=== PATIENT | female | born 1995 | race Caucasian/White ===

== ENCOUNTER 2021-06-29 15:06 | Emergency (ER) | payer OTHER ==
--- NOTE | 2021-06-29 16:00 | EDPHYS ---
Physician Documentation [facility] Name: Simi Cruz Age: 25 yrs Sex: Female : 1995 Arrival Date: 06/29/2021 Time: 15:06 Bed Waiting Private MD: IVONNE Physician Kendrick Velez HPI: 06/29 16:53 This 25 yrs old Female presents to ER via Ambulatory with complaints of Toothache. kb 16:53 The patient presents with pain. The problem is located in the gums. Onset: The kb symptoms/episode began/occurred 2 day(s) ago. Duration: The symptoms are continuous. Modifying factors: The symptoms are alleviated by nothing, the symptoms are aggravated by nothing. Associated signs and symptoms: Pertinent positives: pain, Pertinent negatives: anorexia, chills, dysphagia, fever, inability to eat, nausea, redness in area, swelling, vomiting. Severity of symptoms: At their worst the symptoms were moderate, in the emergency department the symptoms are unchanged. The patient has not experienced similar symptoms in the past. The patient has not recently seen a physician. Pt reports pain in gums to upper and lower right side of mouth. States it started 2 days ago. Denies fever, chills, n/v. . 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 - Social history:: Smoking status: Patient reports the use of cigarette tobacco products, smokes one pack cigarettes per day. ROS: 16:53 Constitutional: Negative for fever, chills, and weight loss. kb 16:53 ENT: Positive for dental pain. 16:53 All other systems are negative. Exam: 16:53 Constitutional: This is a well developed, well nourished patient who is awake, alert, kb and in no acute distress. Head/Face: Normocephalic, atraumatic. ENT: Moist Mucous membranes Cardiovascular: Regular rate and rhythm with a normal S1 and S2. No gallops, murmurs, or rubs. No pulse deficits. Respiratory: Respirations even and unlabored. No increased work of breathing. Talking in full sentences Skin: Warm, dry with normal turgor. Normal color. MS/ Extremity: Pulses equal, no cyanosis. Neurovascular intact. Full, normal range of motion. Neuro: Awake and alert, GCS 15, oriented to person, place, time, and situation. Moves all extremities. Normal gait. Psych: Awake, alert, with orientation to person, place and time. Behavior, mood, and affect are within normal limits. 16:53 ENT: Dental exam: normal. Vital Signs: 15:56 BP 103 / 82; Pulse 90; Resp 16; Temp 97.8; Pulse Ox 100% ; Weight 58.97 kg; Height 5 vg1 ft. 2 in. (157.48 cm); Pain 7/10; 15:56 Body Mass Index 23.78 (58.97 kg, 157.48 cm) vg1 MDM: 15:58 Patient medically screened. kb 16:53 Data reviewed: vital signs, nurses notes. Data interpreted: Pulse oximetry: on room air kb is 100 %. Interpretation: normal. Counseling: I had a detailed discussion with the patient and/or guardian regarding: the historical points, exam findings, and any diagnostic results supporting the discharge/admit diagnosis, the need for outpatient follow up, a dentist, to return to the emergency department if symptoms worsen or persist or if there are any questions or concerns that arise at home. Administered Medications: 16:07 Drug: Ketorolac 30 mg Route: IM; Site: right deltoid; vg1 16:07 Follow up: Response: Medication administered at discharge. vg1 Disposition: 06/30 07:46 Co-signature as Attending Physician, Kendrick Velez MD I agree with the assessment and zenaida plan of care. Disposition Summary: 06/29/21 16:00 Discharge Ordered Location: Home kb Condition: Stable kb Diagnosis - Dental Pain kb Followup: kb - With: Emergency Department - When: As needed - Reason: Worsening of condition Followup: kb - With: Private Physician - When: 2 - 3 days - Reason: Recheck today's complaints, Continuance of care, Re-evaluation by your physician Discharge Instructions: - Discharge Summary Sheet kb - Dental Pain, [id number] kb Forms: - Medication Reconciliation Form kb - Thank You Letter kb - Antibiotic Education kb - Prescription Opioid Use kb Prescriptions: - Clindamycin HCl 300 mg Oral Capsule - take 1 capsule by ORAL route every 6 hours for 10 days; 40 capsule; Refills: 0, kb Product Selection Permitted - Diclofenac Sodium 75 mg Oral Tablet Sustained Release - take 1 tablet by ORAL route 2 times per day; 30 tablet; Refills: 0, Product kb Selection Permitted Signatures: Manisha Rae, LINEWORKER-C LINEWORKER-Kendrick Davies MD MD cha Garcia, Victoria, RN RN vg1
--- NOTE | 2021-06-29 16:00 | ER ---
Nurse's Notes [facility] Name: Simi Cruz Age: 25 yrs Sex: Female : 1995 Arrival Date: 06/29/2021 Time: 15:06 Bed Waiting Private MD: Diagnosis: Dental Pain Presentation: 06/29 15:56 Chief complaint: Patient states: Right facial swelling x 2 days; states is unable to vg1 eat and top and lower gums 'hurt'. Coronavirus screen: Vaccine status: Patient reports being unvaccinated. Client denies travel out of the [place] in the last 14 days. Ebola Screen: Patient negative for fever greater than or equal to 101.5 degrees Fahrenheit, and additional compatible Ebola Virus Disease symptoms. Initial Sepsis Screen: Does the patient meet any 2 criteria? No. Patient's initial sepsis screen is negative. Does the patient have a suspected source of infection? No. Patient's initial sepsis screen is negative. Risk Assessment: Do you want to hurt yourself or someone else? Patient reports no desire to harm self or others. Onset of symptoms was June 14, 2021. 15:56 Method Of Arrival: Ambulatory vg1 15:56 Acuity: MELANIE 4 vg1 Triage Assessment: 15:59 General: Appears in no apparent distress. uncomfortable, Behavior is calm, cooperative. vg1 Pain: Complains of pain in right jaw. EENT: Reports pain in right jaw. 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 - Social history:: Smoking status: Patient reports the use of cigarette tobacco products, smokes one pack cigarettes per day. Screenin:08 Abuse screen: Denies threats or abuse. Nutritional screening: No deficits noted. vg1 Tuberculosis screening: No symptoms or risk factors identified. Fall Risk None identified. Vital Signs: 15:56 BP 103 / 82; Pulse 90; Resp 16; Temp 97.8; Pulse Ox 100% ; Weight 58.97 kg; Height 5 vg1 ft. 2 in. (157.48 cm); Pain 7/10; 15:56 Body Mass Index 23.78 (58.97 kg, 157.48 cm) vg1 ED Course: 15:06 Patient arrived in ED. am2 15:55 Manisha Rae FNP-C is [facility]. kb 15:55 Kendrick Velez MD is Attending Physician. kb 15:58 Triage completed. vg1 15:59 Arm band placed on. vg1 16:08 Patient has correct armband on for positive identification. vg1 16:08 No provider procedures requiring assistance completed. Patient did not have IV access vg1 during this emergency room visit. Administered Medications: 16:07 Drug: Ketorolac 30 mg Route: IM; Site: right deltoid; vg1 16:07 Follow up: Response: Medication administered at discharge. vg1 Outcome: 16:00 Discharge ordered by . kb 16:08 Discharged to home ambulatory, with family. vg1 16:08 Condition: good 16:08 Discharge instructions given to patient, Instructed on discharge instructions, follow up and referral plans. medication usage, Demonstrated understanding of instructions, follow-up care, medications, Prescriptions given X 2. 16:08 Patient left the ED. vg1 Signatures: Manisha Rae FNP-C FNP-Ckb Moreno, Amanda am2 Eugenia Martin, RN RN vg1
[2021-06-29] MEDS ORDERED: KETOROLAC 30 MG/ML INJ ONE (16:05)
[2021-06-29 16:17] VITALS: BP 103/82; TEMP 97.8; O2SAT 100
== END 2021-06-29 16:08 | disposition home or self-care (01) ==
LOC: ER 15:06
DX: K08.89 Other specified disorders of teeth and supporting structures (principal); F17.210 Nicotine dependence, cigarettes, uncomplicated; Z88.0 Allergy status to penicillin; Z91.048 Other nonmedicinal substance allergy status
CPT/HCPCS: 96372; 99283

== ENCOUNTER 2021-09-08 08:43 | Emergency (ER) | payer OTHER ==
[2021-09-08 09:19] LABS: Urine Blood 3+ (Negative); Urine Glucose Negative (Negative); Urine Protein 1+ (Negative); Urine Specific Gravity 1.025 (1.005-1.030)
[2021-09-08 09:21] LABS: Absolute Lymphocytes (CBC) 2.8 K/uL (0.7-4.9); Hematocrit 40.9 % (36.0-45.0); Lymphocytes % 36.4 % (15.3-44.8); MPV 7.9 fL (7.6-11.3); RBC Red Blood Cell Count 4.65 M/uL (3.86-4.86)
[2021-09-08 09:31] LABS: Urine Specific Gravity/Preg 1.025 (1.005-1.030)
[2021-09-08] MEDS ORDERED: LORAZEPAM 0.5 MG TABLET ONE (09:33)
[2021-09-08] MEDS ORDERED: NA CHLORIDE 0.9% 0 ML ONE (09:33)
[2021-09-08] MEDS ORDERED: NA CHLORIDE 0.9% 1,000 ML ONE (09:35)
[2021-09-08 09:38] LABS: ALT/SGPT 19 U/L (12-78); AST/SGOT 13 U/L (15-37); Albumin 4.1 g/dL (3.4-5.0); Alkaline Phosphatase 52 U/L (45-117); BUN Blood Urea Nitrogen 10 mg/dL (7-18); Bicarbonate 23 mmol/L (21-32); Bilirubin Total 0.9 mg/dL (0.2-1.0); Glucose Level 104 mg/dL (74-106); Potassium 3.4 mmol/L (3.5-5.1); Sodium Level 139 mmol/L (136-145)
--- NOTE | 2021-09-08 09:38 | RAD REPORT ---
EXAM DESCRIPTION: CT - Head Brain Wo Cont - 09/08/2021 9:30 am CLINICAL HISTORY: Headache;Seizure COMPARISON: No comparisons TECHNIQUE: All CT scans are performed using dose optimization technique as appropriate and may inclu de automated exposure control or mA/KV adjustment according to patient size. FINDINGS: No intracranial hemorrhage, hydrocephalus or extra-axial fluid collection.No areas of brai n edema or evidence of midline shift. The paranasal sinuses and mastoids are clear. The calvarium is intact. IMPRESSION: No acute intracranial abnormality.
[2021-09-08 10:20] LABS: THC Cannibis POSITIVE (NEGATIVE)
[2021-09-08 10:21] LABS: Barbiturates NEGATIVE (NEGATIVE); Benzodiazepines NEGATIVE (NEGATIVE); Cocaine NEGATIVE (NEGATIVE); METHAMPHETAM POSITIVE (NEGATIVE); Methadone NEGATIVE (NEGATIVE); Opiates NEGATIVE (NEGATIVE); Phencyclidine NEGATIVE (NEGATIVE)
[2021-09-08 11:08] LABS: Valproic Acid (Depakene) Level < 3.0 ug/mL (50-100)
[2021-09-08] MEDS ORDERED: KETOROLAC 30 MG/ML INJ ONE (11:22)
--- NOTE | 2021-09-08 11:40 | ER ---
Nurse's Notes [facility] Name: Simi Cruz Age: 26 yrs Sex: Female : 1995 Arrival Date: 09/08/2021 Time: 08:46 Bed 19 Private MD: Diagnosis: Other seizures;Cannabis abuse;Other stimulant abuse-methamphetamine Presentation: 09/08 08:58 Chief complaint: Patient states: "I had a seizure yesterday and my work wanted me to ss get checked out because I'm shaky and my legs feel week." Pt reports she moved here recently and has not been able to fill her Depakote. Coronavirus screen: Client denies travel out of the [place] in the last 14 days. Ebola Screen: Patient denies exposure to infectious person. Patient denies travel to an Ebola-affected area in the 21 days before illness onset. 08:58 Method Of Arrival: Wheelchair ss 09:00 Initial Sepsis Screen: Does the patient meet any 2 criteria? No. Patient's initial ss sepsis screen is negative. Does the patient have a suspected source of infection? No. Patient's initial sepsis screen is negative. Risk Assessment: Do you want to hurt yourself or someone else? Patient reports no desire to harm self or others. Onset of symptoms was September 07, 2021. 09:00 Acuity: MELANIE 3 ss Historical: - Allergies: 09:01 Desitin; ss 09:01 PENICILLINS; ss - Home Meds: 09:01 Depakote (patient states she is out of medication) [Active]; ss - PMHx: 09:01 Biopolar; diabetes mellitus; Seizure; ss - PSHx: 09:01 Adenoid excision; Cholecystectomy; Tonsillectomy; ss - Immunization history:: Client reports having NOT received the Covid vaccine. - Social history:: Smoking status: Patient reports the use of cigarette tobacco products, smokes one pack cigarettes per day. Screenin:20 Abuse screen: Denies threats or abuse. Nutritional screening: No deficits noted. dw3 Tuberculosis screening: No symptoms or risk factors identified. Fall Risk None identified. Assessment: 09:20 General: Appears uncomfortable, Behavior is calm, cooperative. Pain: Complains of pain dw3 in right lower quadrant and left lower quadrant, behind eyes Quality of pain is described as aching, patient states pounding headache. Neuro: Level of Consciousness is awake, alert, obeys commands, Oriented to person, place, time, situation, Appropriate for age Moves all extremities. Gait is steady, Speech is normal, Facial symmetry appears normal, Reports headache behind eyes. Cardiovascular: Heart tones S1 S2 present Rhythm is sinus rhythm. GI: Abdomen is round non-distended, Reports lower abdominal pain, vomiting x1 yesterday. 09:20 Respiratory: Airway is patent Respiratory effort is even, unlabored, Respiratory dw3 pattern is regular, symmetrical. 09:20 : No signs and/or symptoms were reported regarding the genitourinary system. EENT: No dw3 signs and/or symptoms were reported regarding the EENT system. Derm: Skin is pink, warm \\T\\ dry. Musculoskeletal: Range of motion: intact in all extremities. 10:00 Reassessment: Patient is alert, oriented x 3, equal unlabored respirations, skin dw3 warm/dry/pink. patient back from CT Scan, waiting results . 11:14 Reassessment: Patient is alert, oriented x 3, equal unlabored respirations, skin dw3 warm/dry/pink. patient still complaining about headache and is requesting medications. Provider notified. 11:14 General: Appears comfortable, Patient reports shaking has improved . dw3 12:55 Reassessment: Patient is alert, oriented x 3, equal unlabored respirations, skin dw3 warm/dry/pink. Vital Signs: 08:58 BP 121 / 80; Pulse 116; Resp 17; Temp 97.8(TE); Pulse Ox 97% on R/A; Weight 74.84 kg; ss Height 5 ft. 2 in. (157.48 cm); Pain 0/10; 09:20 BP 126 / 63; Pulse 75; Resp 16; Pulse Ox 98% on R/A; kj1 08:58 Body Mass Index 30.18 (74.84 kg, 157.48 cm) [place] Coma Score: 09:01 Eye Response: spontaneous(4). Verbal Response: oriented(5). Motor Response: obeys ss commands(6). Total: 15. ED Course: 08:46 Patient arrived in ED. as 08:47 Abhi Ross NP is PHCP. pm1 08:47 Felix Paula DO is Attending Physician. pm1 09:01 Triage completed. ss 09:01 Arm band placed on right wrist. ss 09:04 Initial lab(s) drawn, by me, sent to lab. Inserted saline lock: 20 gauge in right kj1 antecubital area, using aseptic technique. Blood collected. 09:07 Shereen Jimenez, RN is Primary Nurse. dw3 09:20 Patient has correct armband on for positive identification. Placed in gown. Bed in low dw3 position. Call light in reach. Side rails up X2. 09:31 CT Head Brain wo Cont In Process Unspecified. EDMS 11:39 Cuauhtemoc Burch MD is Referral Physician. pm1 12:55 No provider procedures requiring assistance completed. IV discontinued, intact, dw3 bleeding controlled, No redness/swelling at site. Pressure dressing applied. Administered Medications: 10:00 Drug: Ativan (LORazepam) 0.5 mg Route: PO; dw3 10:00 Drug: NS 0.9% 1000 ml Route: IV; Rate: 1000 ml; Site: right antecubital; dw3 11:02 Follow up: IV Status: Completed infusion; IV Intake: 1000ml jg9 11:24 Drug: TORadol (ketorolac) 30 mg Route: IVP; Site: right antecubital; dw3 Intake: 11:02 IV: 1000ml; Total: 1000ml. jg9 Outcome: 11:39 Discharge ordered by MD. pm1 12:55 Discharged to home ambulatory, with significant other. dw3 12:55 Condition: stable 12:55 Discharge instructions given to patient, Instructed on discharge instructions, follow up and referral plans. medication usage, Demonstrated understanding of instructions, follow-up care, medications, Prescriptions given X 2. 13:01 Patient left the ED. dw3 Signatures: Dispatcher [employer] EDMS Nicole Yen Shelby, AIDA RN Abhi Ross, WALKER PRICING SPECIALIST pm1 Vicky Rae kj1 Lor Zambrano RN RN jg9 Shereen Jimenez, RN RN dw3 Corrections: (The following items were deleted from the chart) 10:40 10:06 General: Appears uncomfortable, Behavior is calm, cooperative, dw3 dw3 10:40 10:06 Pain: Complains of pain in right lower quadrant and left lower quadrant, behind dw3 eyes Quality of pain is described as aching, patient states pounding headache dw3 : 10:06 Neuro: Level of Consciousness is awake, alert, obeys commands, Oriented to dw3 person, place, time, situation, Appropriate for age Moves all extremities. Gait is steady, Speech is normal, Facial symmetry appears normal, Reports headache behind eyes dw3 : 10:06 Cardiovascular: Heart tones S1 S2 present Rhythm is sinus rhythm dw3 dw3 : 10:06 Respiratory: Airway is patent Respiratory effort is even, unlabored, Respiratory dw3 pattern is regular, symmetrical, dw3 : 10:06 GI: Abdomen is round non-distended, Reports lower abdominal pain, vomiting x1 dw3 yesterday dw3
--- NOTE | 2021-09-08 11:40 | EDPHYS ---
Physician Documentation [facility] Name: Simi Cruz Age: 26 yrs Sex: Female : 1995 Arrival Date: 09/08/2021 Time: 08:46 Bed 19 Private MD: ED Physician Felix Paula HPI: 09/08 09:06 This 26 yrs old Female presents to ER via Wheelchair with complaints of Seizure. pm1 09:06 This 26 yrs old Female presents to ER via Wheelchair with complaints of Seizure. pm1 09:06 The patient presents after having a single isolated seizure, that lasted 1 minute(s). pm1 Character of seizure(s): Loss of consciousness: the patient did not lose consciousness, Motor activity: generalized. Seizure onset: Yesterday. Context: the seizure(s) was witnessed, by family, , occurred at home, Contributing factors: Patient ran out of [facility] for her seizures. Seizure Hx: Usual frequency: roughly every 1 month(s), Seizure medications: valproic acid. Associated injury: Head/face: left side of head, pain. Historical: - Allergies: 09:01 Desitin; ss 09:01 PENICILLINS; ss - Home Meds: 09:01 Depakote (patient states she is out of medication) [Active]; ss - PMHx: 09:01 Biopolar; diabetes mellitus; Seizure; ss - PSHx: 09:01 Adenoid excision; Cholecystectomy; Tonsillectomy; ss - Immunization history:: Client reports having NOT received the Covid vaccine. - Social history:: Smoking status: Patient reports the use of cigarette tobacco products, smokes one pack cigarettes per day. ROS: 09:06 Constitutional: Negative for fever, chills, and weight loss, Cardiovascular: Negative pm1 for chest pain, palpitations, and edema, Respiratory: Negative for shortness of breath, cough, wheezing, and pleuritic chest pain, Abdomen/GI: Negative for abdominal pain, nausea, vomiting, diarrhea, and constipation, MS/Extremity: Negative for injury and deformity, Skin: Negative for injury, rash, and discoloration. 09:06 Neuro: Positive for headache, seizure activity, Weakness to bilateral legs. 09:06 All other systems are negative. Exam: 09:06 Constitutional: This is a well developed, well nourished patient who is awake, alert, pm1 and in no acute distress. Head/Face: Normocephalic, atraumatic. 09:06 Back: No spinal tenderness. No costovertebral tenderness. Full range of motion. Skin: Warm, dry with normal turgor. Normal color with no rashes, no lesions, and no evidence of cellulitis. MS/ Extremity: Pulses equal, no cyanosis. Neurovascular intact. Full, normal range of motion. 09:06 Eyes: Exam is negative for acute changes, Periorbital structures: appear normal, Extraocular movements: no acute changes, Conjunctiva: normal, no acute changes. 09:06 ENT: Exam is negative for Mouth: no acute changes, Lips: normal, moist, Oral mucosa: normal, pink and intact, moist. 09:06 Cardiovascular: Exam negative for acute changes, Rate: normal, Rhythm: regular, Pulses: no pulse deficits are appreciated, Heart sounds: normal. 09:06 Respiratory: Exam negative for acute changes, respiratory distress, shortness of breath, Breath sounds: are clear throughout. 09:06 Abdomen/GI: Exam negative for acute changes, Inspection: abdomen appears normal, Palpation: abdomen is soft and non-tender. 09:06 Neuro: Exam negative for acute changes, Orientation: is normal, Mentation: is normal, Motor: is normal, moves all fours. Vital Signs: 08:58 BP 121 / 80; Pulse 116; Resp 17; Temp 97.8(TE); Pulse Ox 97% on R/A; Weight 74.84 kg; Height 5 ft. 2 in. (157.48 cm); Pain 0/10; 09:20 BP 126 / 63; Pulse 75; Resp 16; Pulse Ox 98% on R/A; kj1 08:58 Body Mass Index 30.18 (74.84 kg, 157.48 cm) [place] Coma Score: 09:01 Eye Response: spontaneous(4). Verbal Response: oriented(5). Motor Response: obeys commands(6). Total: 15. MDM: 09:17 Patient medically screened. pm1 11:37 Data reviewed: vital signs. Data interpreted: Pulse oximetry: on room air is 98 %. pm1 Interpretation: normal. Counseling: I had a detailed discussion with the patient and/or guardian regarding: the historical points, exam findings, and any diagnostic results supporting the discharge/admit diagnosis, lab results, radiology results, the need for outpatient follow up, a neurologist, to return to the emergency department if symptoms worsen or persist or if there are any questions or concerns that arise at home. 09/08 09:06 Order name: CBC with Diff; Complete Time: 09:28 pm1 09/08 09:06 Order name: CMP; Complete Time: 11:18 pm1 09/08 09:19 Order name: Urine Dipstick-Ancillary; Complete Time: 09:28 EDMS 09/08 09:21 Order name: Urine --Ancillary (enter results); Complete Time: 09:34 bd 09/08 09:28 Order name: UDS; Complete Time: 10:32 pm1 09/08 09:41 Order name: LAB Add On pm1 09/08 09:06 Order name: IV Saline Lock; Complete Time: 09:08 pm1 09/08 09:06 Order name: EKG; Complete Time: 09:07 pm1 09/08 09:06 Order name: CT Head Brain wo Cont; Complete Time: 09:41 pm1 09/08 09:53 Order name: Valproic Acid (Depakene) Level; Complete Time: 11:18 EDMS 09/08 10:33 Order name: LAB Add On pm1 09/08 09:06 Order name: EKG - Nurse/Tech; Complete Time: 09:53 pm1 09/08 09:06 Order name: Urine Dipstick-Ancillary (obtain specimen); Complete Time: 09:53 pm1 09/08 09:06 Order name: Urine Test (obtain specimen); Complete Time: 09:53 pm1 Administered Medications: 10:00 Drug: Ativan (LORazepam) 0.5 mg Route: PO; dw3 10:00 Drug: NS 0.9% 1000 ml Route: IV; Rate: 1000 ml; Site: right antecubital; dw3 11:02 Follow up: IV Status: Completed infusion; IV Intake: 1000ml jg9 11:24 Drug: TORadol (ketorolac) 30 mg Route: IVP; Site: right antecubital; dw3 Disposition: 22:05 Co-signature as Attending Physician, Felix WILDER was immediately available on-site ms3 in the Emergency Department for consultation in the care of the patient.. Disposition Summary: 09/08/21 11:39 Discharge Ordered Location: Home pm1 Problem: new pm1 Symptoms: have improved pm1 Condition: Stable pm1 Diagnosis - Other seizures pm1 - Cannabis abuse pm1 - Other stimulant abuse - methamphetamine pm1 Followup: pm1 - With: Emergency Department - When: As needed - Reason: Worsening of condition Followup: pm1 - With: Private Physician - When: 2 - 3 days - Reason: Recheck today's complaints, Continuance of care, Re-evaluation by your physician Followup: pm1 - With: Cuauhtemoc Burch MD - When: 2 - 3 days - Reason: Recheck today's complaints, Continuance of care, Re-evaluation by your physician Discharge Instructions: - Discharge Summary Sheet pm1 - Cannabis Use Disorder pm1 - Seizure, Adult pm1 - Methamphetamines Use Disorder pm1 Forms: - Medication Reconciliation Form pm1 - Thank You Letter pm1 - Antibiotic Education pm1 - Prescription Opioid Use pm1 - Work release form pm1 Prescriptions: - ondansetron 4 mg Oral tablet,disintegrating - place 1 tablet by TRANSLINGUAL route every 8 hours As needed; 12 tablet; pm1 Refills: 0, Product Selection Permitted - Hydroxyzine HCl 50 mg Oral Tablet - take 1 tablet by ORAL route every 8 hours As needed; 20 tablet; Refills: 0, pm1 Product Selection Permitted Signatures: Dispatcher [employer] Maria Del Carmen Alonzo RN RN ss Abhi Ross, WALKER WAREHOUSE OPERATIONS ASSOCIATE pm1 Felix Paula DO DO ms3 Shereen Jimenez RN RN dw3 Lor Zambrano RN jg9
[2021-09-08 13:27] VITALS: TEMP 97.8
[2021-09-08 13:28] VITALS: BP 126/63; O2SAT 98
--- NOTE | 2021-09-09 07:55 | EKG ---
Test Date: 2021-09-08 Test Time: 09:17:53 Crystal Report Developer: LISA MEASUREMENT RESULTS: Intervals: Rate: 91 SC: 116 QRSD: 82 QT: 370 QTc: 455 [place]: P: 73 SC: 116 QRS: 90 T: 75 INTERPRETIVE STATEMENTS: Normal sinus rhythm Rightward axis Borderline ECG No previous ECG available for comparison Electronically Signed On 09-09-21 07:52:43 CDT by Troy Reeder
== END 2021-09-08 13:01 | disposition home or self-care (01) ==
LOC: ER 08:43
DX: G40.89 Other seizures (principal); F12.10 Cannabis abuse, uncomplicated; F15.10 Other stimulant abuse, uncomplicated; F31.9 Bipolar disorder, unspecified; F17.210 Nicotine dependence, cigarettes, uncomplicated; Z88.0 Allergy status to penicillin; Z88.8 Allergy status to other drugs, medicaments and biological substances
CPT/HCPCS: 96361; 93005; 85025; 36415; 81025; 80164; 81003; 80053; 80307; 70450; 96374; 99284; J7030

== ENCOUNTER 2022-01-03 15:46 | Emergency (ER) | payer SELFPAY ==
[2022-01-03 17:06] LABS: Urine Blood Negative (Negative); Urine Glucose Negative (Negative); Urine Protein Negative (Negative); Urine Specific Gravity 1.025 (1.005-1.030); Urine pH 5.5 (5.0-7.0)
[2022-01-03 17:16] LABS: Urine Bacteria <20 /HPF (<20); Urine RBC None Seen /HPF (None Seen)
[2022-01-03 17:30] LABS: Urine Specific Gravity/Preg 1.025 (1.005-1.030)
[2022-01-03] MEDS ORDERED: FAMOTIDINE 20 MG/2 ML VIAL IV ONE (17:42)
[2022-01-03] MEDS ORDERED: ONDANSETRON 4 MG/2 ML VIAL ONE ×2 (17:42→19:21)
[2022-01-03] MEDS ORDERED: MORPHINE 2 MG/ML SYR ONE (17:42)
[2022-01-03 17:43] LABS: Absolute Lymphocytes (CBC) 2.6 K/uL (0.7-4.9); Hematocrit 39.5 % (36.0-45.0); Lymphocytes % 33.7 % (15.3-44.8); MCV 89.3 fL (80-100); MPV 8.2 fL (7.6-11.3); RBC Red Blood Cell Count 4.42 M/uL (3.86-4.86)
[2022-01-03 17:58] LABS: ALT/SGPT 14 U/L (12-78); AST/SGOT 10 U/L (15-37); Albumin 3.8 g/dL (3.4-5.0); Alkaline Phosphatase 45 U/L (45-117); BUN Blood Urea Nitrogen 9 mg/dL (7-18); Bicarbonate 29 mmol/L (21-32); Bilirubin Total 0.3 mg/dL (0.2-1.0); Glomerular Filtration Rate 124 ml/min (=/>90); Glucose Level 84 mg/dL (74-106); Lipase 56 U/L (73-393); Potassium 3.6 mmol/L (3.5-5.1); Protein, Total 6.8 g/dL (6.4-8.2); Sodium Level 143 mmol/L (136-145)
[2022-01-03 17:59] LABS: Valproic Acid (Depakene) Level < 3.0 ug/mL (50-100)
--- NOTE | 2022-01-03 18:25 | RAD REPORT ---
EXAM DESCRIPTION: CTAbdomen Pelvis W Contrast - 01/03/2022 6:11 pm CLINICAL HISTORY: abdominal pain COMPARISON: None TECHNIQUE: CT of the abdomen and pelvis was performed. All CT scans are performed using dose optimization technique as appropriate and may include automated exposure control or mA/KV adjustment according to patient size. FINDINGS: Lower chest: No acute abnormality. Liver: No acute abnormality or suspicious lesions. Biliary: No biliary ductal dilatation. Cholecystectomy Stomach: No significant focal abnormality. Duodenum: No significant focal abnormality. Pancreas: No significant abnormality. Spleen: No significant abnormality. Adrenal: No suspicious lesions. Kidney/ureter: No hydronephrosis. No renal calculi. Retroperitoneum: No retroperitoneal adenopathy. Vascular: No aneurysm. Bowel: No significant focal abnormality. Normal appendix. Peritoneum: No ascites or free air. Bladder: Grossly unremarkable. Reproductive: No adnexal masses. Bones: No acute fracture. Other: n/a IMPRESSION: No acute intra-abdominal or pelvic finding. Normal appendix.
[2022-01-03] MEDS ORDERED: NA CHLORIDE 0.9% 1,000 ML ONE (19:21)
[2022-01-03] MEDS ORDERED: DIVALPROEX DR 250 MG TAB PO ONE (19:21)
--- NOTE | 2022-01-03 19:55 | EDPHYS ---
Physician Documentation [facility] Name: Simi Hinkle Age: 26 yrs Sex: Female : 1995 Arrival Date: 01/03/2022 Time: 15:48 Bed 14 Private MD: ED Physician Mary Kate Silva HPI: 01/03 17:05 This 26 yrs old Female presents to ER via Ambulatory with complaints of Vomiting. cp 17:05 The patient presents to the emergency department with nausea, with "dry heaves", cp vomiting, that is intermittent, abdominal pain, of the epigastric area. Onset: The symptoms/episode began/occurred 2 day(s) ago. 17:05 Possible causes: ran out of prescribed Depakote 2 days ago. Associated signs and cp symptoms: Pertinent positives: abdominal pain, anorexia, Pertinent negatives: constipation, diarrhea, fever, GI bleeding. Severity of symptoms: in the emergency department the symptoms are unchanged despite home interventions. 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 - Social history:: Smoking status: Patient reports the use of cigarette tobacco products, smokes one-half pack cigarettes per day. ROS: 17:10 Constitutional: Positive for poor PO intake, Negative for body aches, chills, fever. cp 17:10 Eyes: Negative for injury, pain, redness, and discharge. cp 17:10 ENT: Negative for drainage from ear(s), ear pain, sore throat, difficulty swallowing, difficulty handling secretions. 17:10 Cardiovascular: Negative for chest pain, palpitations. 17:10 Respiratory: Negative for cough, shortness of breath, wheezing. 17:10 Abdomen/GI: Positive for abdominal pain, nausea and vomiting, Negative for diarrhea, constipation, hematemesis, black/tarry stool, rectal bleeding. 17:10 Back: Negative for pain at rest, pain with movement. 17:10 : Positive for urinary frequency. 17:10 Neuro: Negative for altered mental status, headache, weakness. 17:10 All other systems are negative. Exam: 17:10 Constitutional: The patient appears in no acute distress, alert, awake, cp non-diaphoretic, non-toxic, well developed, well nourished. 17:10 Head/Face: Normocephalic, atraumatic. cp 17:10 Eyes: Periorbital structures: appear normal, Conjunctiva: normal, no exudate, no injection, Sclera: no appreciated abnormality, Lids and lashes: appear normal, bilaterally. 17:10 ENT: External ear(s): are unremarkable, Nose: is normal, Mouth: Lips: moist, Oral mucosa: moist, Posterior pharynx: Airway: no evidence of obstruction, patent, Tonsils: are normal in appearance, swelling, is not appreciated, erythema, is not appreciated, exudate, is not appreciated. 17:10 Chest/axilla: Inspection: normal. 17:10 Cardiovascular: Rate: normal, Rhythm: regular. 17:10 Respiratory: the patient does not display signs of respiratory distress, Respirations: normal, no use of accessory muscles, no retractions, labored breathing, is not present, Breath sounds: are clear throughout, no decreased breath sounds, no stridor, no wheezing. 17:10 Abdomen/GI: Inspection: abdomen appears normal, Bowel sounds: active, all quadrants, Palpation: soft, in all quadrants, moderate abdominal tenderness, in the epigastric area, rebound tenderness, is not appreciated, involuntary guarding, is not appreciated. 17:10 Back: CVA tenderness, is absent. 17:10 Skin: cellulitis, is not appreciated, no rash present. 17:10 Neuro: Orientation: to person, place \\T\\ time. Mentation: is normal, Motor: moves all fours, strength is normal, Sensation: is normal. Vital Signs: 16:15 BP 109 / 67; Pulse 83; Resp 17; Temp 98.8; Pulse Ox 99% ; Weight 64.41 kg; Height 5 ft. ap3 2 in. (157.48 cm); Pain 8/10; 17:09 BP 109 / 79; Pulse 82; Resp 18; Pulse Ox 100% on R/A; Pain 8/10; eh3 17:49 BP 104 / 74; Pulse 67; Resp 18; Pulse Ox 100% on R/A; eh3 18:34 BP 125 / 78; Pulse 61; Resp 18; Pulse Ox 100% on R/A; eh3 19:31 BP 109 / 72; Pulse 63; Resp 18; Pulse Ox 100% on R/A; eh3 16:15 Body Mass Index 25.97 (64.41 kg, 157.48 cm) ap3 MDM: 16:55 Patient medically screened. cp 19:54 Data reviewed: vital signs, nurses notes, lab test result(s), radiologic studies, CT cp scan. 19:54 Differential diagnosis: Nonspecific abd pain, gastritis, appendicitis, diverticulitis, cp viral gastroenteritis, gastroenteritis. Counseling: I had a detailed discussion with the patient and/or guardian regarding: the historical points, exam findings, and any diagnostic results supporting the discharge/admit diagnosis, lab results, radiology results, the need for outpatient follow up, a family practitioner, to return to the emergency department if symptoms worsen or persist or if there are any questions or concerns that arise at home. Response to treatment: the patient's symptoms have markedly improved after treatment, and as a result, I will discharge patient. 01/03 16:58 Order name: Depakote; Complete Time: 18:01 01/03 18:34 Interpretation: Reviewed. 01/03 16:58 Order name: CBC with Diff; Complete Time: 18:01 01/03 16:58 Order name: CMP; Complete Time: 18:01 01/03 18:34 Interpretation: Normal except: CL 110; AST 10. 01/03 16:58 Order name: Lipase; Complete Time: 18:01 cp 01/03 16:58 Order name: Urine Microscopic Only; Complete Time: 18:01 cp 01/03 17:06 Order name: Urine Dipstick-Ancillary; Complete Time: 18:01 EDMS 01/03 17:13 Order name: Urine --Ancillary (enter results); Complete Time: 18:01 eb 01/03 17:45 Order name: CT Abd/Pelvis - IV Contrast Only; Complete Time: 18:33 cp 01/03 18:33 Interpretation: Report reviewed. 01/03 16:57 Order name: Urine Dipstick-Ancillary (obtain specimen); Complete Time: 17:08 cp 01/03 16:57 Order name: Urine Test (obtain specimen); Complete Time: 17:08 cp 01/03 16:58 Order name: IV Saline Lock; Complete Time: 17:39 cp 01/03 16:58 Order name: Labs collected and sent; Complete Time: 17:39 cp 01/03 18:34 Order name: PO challenge; Complete Time: 18:38 cp Administered Medications: 17:48 Drug: Zofran (Ondansetron) 4 mg Route: IVP; Site: right antecubital; eh3 19:34 Follow up: Response: No adverse reaction eh3 17:48 Drug: Pepcid (famotidine) 20 mg Route: IVP; Site: right antecubital; eh3 19:34 Follow up: Response: No adverse reaction eh3 17:48 Drug: morphine 2 mg Route: IVP; Infused Over: 4 mins; Site: right antecubital; eh3 19:34 Follow up: Response: No adverse reaction; Marked relief of symptoms eh3 19:17 Drug: NS 0.9% 1000 ml Route: IV; Rate: 1 bolus; Site: left antecubital; ld1 19:17 Drug: Zofran (Ondansetron) 4 mg Route: IVP; Site: left antecubital; ld1 19:34 Follow up: Response: No adverse reaction eh3 19:17 Drug: Depakene (valproic acid) 250 mg Route: PO; ld1 19:35 Follow up: Response: No adverse reaction eh3 Disposition Summary: 01/03/22 19:54 Discharge Ordered Location: Home cp Problem: new cp Symptoms: have improved cp Condition: Stable cp Diagnosis - Nausea with vomiting, unspecified cp - Encounter for issue of repeat prescription cp - Abdominal pain, unspecified cp Followup: cp - With: Private Physician - When: 2 - 3 days - Reason: Recheck today's complaints Discharge Instructions: - Discharge Summary Sheet cp - Abdominal Pain, Adult cp - Nausea and Vomiting, Adult cp - Medicine Refill at the Emergency Department cp Forms: - Medication Reconciliation Form cp - Thank You Letter cp - Antibiotic Education cp - Prescription Opioid Use cp - Work release form ds4 Prescriptions: - divalproex 250 mg Oral tablet,delayed release (DR/EC) - take 1 tablet by ORAL route 2 times per day; 60 tablet; Refills: 0, Product cp Selection Permitted - ondansetron 4 mg Oral tablet,disintegrating - place 1 tablet by TRANSLINGUAL route 4 times per day; 20 tablet; Refills: 0, cp Product Selection Permitted - Protonix 40 mg Oral Tablet - take 1 tablet by ORAL route once daily; 30 tablet; Refills: 0, Product cp Selection Permitted Signatures: Dispatcher [employer] EDSD Kendrick Kan PA PA cp Prokisch, Amanda, RN RN ap3 Carola Alfaro RN RN ld1 Beatrice Pappas 3 Corrections: (The following items were deleted from the chart) 16:24 16:18 PMHx: diabetes mellitus; ap3 ap3
--- NOTE | 2022-01-03 19:55 | ER ---
Nurse's Notes [facility] Name: Simi Hinkle Age: 26 yrs Sex: Female : 1995 Arrival Date: 01/03/2022 Time: 15:48 Bed 14 Private MD: Diagnosis: Nausea with vomiting, unspecified;Encounter for issue of repeat prescription;Abdominal pain, unspecified Presentation: 01/03 16:15 Chief complaint: Patient states: Diffuse abdominal pain, N/V, urinary frequency x 2 ap3 days, reports ran out of Depakote 150 mg 3 days ago. Coronavirus screen: At this time, the client does not indicate any symptoms associated with coronavirus-19. Ebola Screen: No symptoms or risks identified at this time. Initial Sepsis Screen: Does the patient meet any 2 criteria? No. Patient's initial sepsis screen is negative. Does the patient have a suspected source of infection? No. Patient's initial sepsis screen is negative. Risk Assessment: Do you want to hurt yourself or someone else? Patient reports no desire to harm self or others. Onset of symptoms was January 01, 2022. Care prior to arrival: None. 16:15 Method Of Arrival: Ambulatory ap3 16:15 Acuity: MELANIE 3 ap3 Triage Assessment: 16:18 General: Appears in no apparent distress. uncomfortable, Behavior is calm, cooperative, ap3 appropriate for age. Pain: Complains of pain in abdomen diffusely Pain currently is 8 out of 10 on a pain scale. Neuro: Level of Consciousness is awake, alert, obeys commands, Oriented to person, place, time, situation. Cardiovascular: Patient's skin is warm and dry. Respiratory: Airway is patent Respiratory effort is even, unlabored, Respiratory pattern is regular. GI: Reports nausea, vomiting. : Reports urinary frequency. Derm: Skin is pink, warm \T\ dry. 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 - Social history:: Smoking status: Patient reports the use of cigarette tobacco products, smokes one-half pack cigarettes per day. Screenin:09 Abuse screen: Denies threats or abuse. Denies injuries from another. Nutritional eh3 screening: No deficits noted. Tuberculosis screening: No symptoms or risk factors identified. Fall Risk None identified. Assessment: 17:09 Reassessment: No changes from previously documented assessment. See triage assessment.. eh3 General: Appears in no apparent distress. uncomfortable, Behavior is cooperative, appropriate for age, anxious. Pain: Complains of pain in forehead, epigastric area and suprapubic area Pain does not radiate. Pain currently is 8 out of 10 on a pain scale. Quality of pain is described as stabbing, Pain began 2-3 days ago. Is continuous, Noted to be guarding. Neuro: Level of Consciousness is awake, alert, obeys commands, Oriented to person, place, time, situation. Cardiovascular: Capillary refill < 3 seconds Patient's skin is warm and dry. Respiratory: Airway is patent Respiratory effort is even, unlabored. GI: Abdomen is flat, non-distended, Bowel sounds present X 4 quads. Abd is soft X 4 quads Abdomen is tender to palpation in epigastric area and suprapubic area Reports lower abdominal pain, upper abdominal pain, epigastric pain, intolerance of fluids, intolerance of food, nausea, vomiting, since 2 days ago. : No signs and/or symptoms were reported regarding the genitourinary system. : Reports urinary frequency, since 2 days ago. EENT: No signs and/or symptoms were reported regarding the EENT system. Derm: No signs and/or symptoms reported regarding the dermatologic system. Musculoskeletal: No signs and/or symptoms reported regarding the musculoskeletal system. Vital Signs: 16:15 BP 109 / 67; Pulse 83; Resp 17; Temp 98.8; Pulse Ox 99% ; Weight 64.41 kg; Height 5 ft. ap3 2 in. (157.48 cm); Pain 8/10; 17:09 BP 109 / 79; Pulse 82; Resp 18; Pulse Ox 100% on R/A; Pain 8/10; eh3 17:49 BP 104 / 74; Pulse 67; Resp 18; Pulse Ox 100% on R/A; eh3 18:34 BP 125 / 78; Pulse 61; Resp 18; Pulse Ox 100% on R/A; eh3 19:31 BP 109 / 72; Pulse 63; Resp 18; Pulse Ox 100% on R/A; eh3 16:15 Body Mass Index 25.97 (64.41 kg, 157.48 cm) ap3 ED Course: 15:48 Patient arrived in ED. as 15:53 Kendrick Kan PA is PHCP. cp 15:53 Mary Kate Silva is Attending Physician. cp 16:18 Triage completed. ap3 16:18 Arm band placed on right wrist. ap3 16:53 Beatrice Pappas is Primary Nurse. eh3 17:09 Patient has correct armband on for positive identification. Bed in low position. Call eh3 light in reach. Side rails up X2. 17:49 CMP Sent. eh3 17:49 Lipase Sent. eh3 17:49 Depakote Sent. eh3 18:13 CT Abd/Pelvis - IV Contrast Only In Process Unspecified. EDMS 19:35 No provider procedures requiring assistance completed. eh3 20:21 IV discontinued, intact, bleeding controlled, No redness/swelling at site. ld1 Administered Medications: 17:48 Drug: Zofran (Ondansetron) 4 mg Route: IVP; Site: right antecubital; eh3 19:34 Follow up: Response: No adverse reaction eh3 17:48 Drug: Pepcid (famotidine) 20 mg Route: IVP; Site: right antecubital; eh3 19:34 Follow up: Response: No adverse reaction eh3 17:48 Drug: morphine 2 mg Route: IVP; Infused Over: 4 mins; Site: right antecubital; eh3 19:34 Follow up: Response: No adverse reaction; Marked relief of symptoms eh3 19:17 Drug: NS 0.9% 1000 ml Route: IV; Rate: 1 bolus; Site: left antecubital; ld1 19:17 Drug: Zofran (Ondansetron) 4 mg Route: IVP; Site: left antecubital; ld1 19:34 Follow up: Response: No adverse reaction eh3 19:17 Drug: Depakene (valproic acid) 250 mg Route: PO; ld1 19:35 Follow up: Response: No adverse reaction eh3 Medication: 19:35 VIS not applicable for this client. eh3 Outcome: 19:54 Discharge ordered by . cp 20:21 Discharged to home ambulatory. ld1 20:21 Condition: stable 20:21 Discharge instructions given to patient, Instructed on discharge instructions, follow up and referral plans. Demonstrated understanding of instructions, follow-up care. 20:21 Patient left the ED. ld1 Signatures: Dispatcher [employer] EDNicole Marrero Corey, PA PA cp Prokisch, Amanda, RN RN ap3 Carola Alfaro RN RN ld1 Beatrice Pappas eh3 Corrections: (The following items were deleted from the chart) 16:24 16:18 PMHx: diabetes mellitus; ap3 ap3
[2022-01-03 21:08] VITALS: TEMP 98.8
[2022-01-03 21:10] VITALS: O2SAT 100
[2022-01-03 21:15] VITALS: BP 109/72
== END 2022-01-03 20:21 | disposition home or self-care (01) ==
LOC: ER 15:46
DX: R11.2 Nausea with vomiting, unspecified (principal); Z76.0 Encounter for issue of repeat prescription; R10.9 Unspecified abdominal pain; F31.9 Bipolar disorder, unspecified; Z88.0 Allergy status to penicillin; Z88.8 Allergy status to other drugs, medicaments and biological substances
CPT/HCPCS: 36415; 74177; 80053; 80164; 81003; 81015; 81025; 83690; 85025; 99284; J2270; J2405; J3490; J7030; Q9967

== ENCOUNTER 2022-01-09 11:52 | Emergency (ER) | payer SELFPAY ==
[2022-01-09 12:28] LABS: Urine Blood Negative (Negative); Urine Glucose Negative (Negative); Urine Protein Trace (Negative); Urine Specific Gravity 1.025 (1.005-1.030)
[2022-01-09 13:20] LABS: Urine Specific Gravity/Preg 1.025 (1.005-1.030)
[2022-01-09] MEDS ORDERED: NA CHLORIDE 0.9% 1,000 ML ONE (14:08)
[2022-01-09] MEDS ORDERED: ONDANSETRON 4 MG/2 ML VIAL ONE (14:08)
[2022-01-09] MEDS ORDERED: FAMOTIDINE 20 MG/2 ML VIAL IV ONE (14:08)
[2022-01-09 14:17] LABS: Absolute Lymphocytes (CBC) 2.4 K/uL (0.7-4.9); Hematocrit 43.1 % (36.0-45.0); Lymphocytes % 29.7 % (15.3-44.8); MCV 89.8 fL (80-100); MPV 8.3 fL (7.6-11.3)
[2022-01-09 14:28] LABS: Urine Bacteria >50 /HPF (<20); Urine RBC <5 /HPF (None Seen)
[2022-01-09 14:34] LABS: Albumin 4.1 g/dL (3.4-5.0); Bilirubin Total 0.3 mg/dL (0.2-1.0); Potassium 3.8 mmol/L (3.5-5.1); Protein, Total 7.7 g/dL (6.4-8.2)
--- NOTE | 2022-01-09 15:24 | RAD REPORT ---
EXAM DESCRIPTION: CT - Abdomen Pelvis W Contrast - 01/09/2022 3:04 pm CLINICAL HISTORY: Abdominal pain COMPARISON: January 03, 2022 TECHNIQUE: Computed axial tomography of the abdomen pelvis was obtained. 100 cc Isovue-300 was admin istered intravenously. Oral contrast was not requested which limits evaluation of bowel and appendix All CT scans are performed using dose optimization technique as appropriate and may include automated exposure control or mA/KV adjustment according to patient size. FINDINGS: The liver, spleen, pancreas, adrenal and kidneys appear unremarkable. There is no evidence of diverticulitis. Normal appendix. Bilateral 2 centimeter ovarian cysts without significant free fluid Cholecystectomy IMPRESSION: Bilateral 2 centimeter ovarian cysts without significant free fluid
--- NOTE | 2022-01-09 15:53 | EDPHYS ---
Physician Documentation [facility] Name: Simi Hinkle Age: 26 yrs Sex: Female : 1995 Arrival Date: 01/09/2022 Time: 11:53 Bed 12 Private MD: ED Physician Mary Kate Silva HPI: 01/09 12:15 This 26 yrs old Female presents to ER via Ambulatory with complaints of Abdominal Pain, jh7 Vomiting/Diarrhea. 12:15 Onset: The symptoms/episode began/occurred 1 week(s) ago. Patient complains of lower jh7 abdominal pain, nausea, vomiting, and diarrhea for the past week. Reports that she was seen recently for the same issues, but now the pain is on her lower abdomen. Denies fever.. Historical: - Allergies: 12:08 Desitin; hb 12:08 PENICILLINS; hb - Home Meds: 12:08 Depakote (patient states she is out of medication) [Active]; hb - PMHx: 12:08 Biopolar; HYPOGLYCEMIA; Seizure; hb - PSHx: 12:08 Adenoid excision; Cholecystectomy; Tonsillectomy; hb - Immunization history:: Adult Immunizations up to date. - Social history:: Smoking status: Patient reports the use of cigarette tobacco products, smokes one-half pack cigarettes per day. ROS: 12:15 Constitutional: Negative for fever, chills, and weight loss, ENT: Negative for injury, jh7 pain, and discharge, Neck: Negative for injury, pain, and swelling, Cardiovascular: Negative for chest pain, palpitations, and edema, Respiratory: Negative for shortness of breath, cough, wheezing, and pleuritic chest pain, Back: Negative for injury and pain, MS/Extremity: Negative for injury and deformity, Skin: Negative for injury, rash, and discoloration, Neuro: Negative for headache, weakness, numbness, tingling, and seizure. 12:15 Abdomen/GI: Positive for abdominal pain, nausea, vomiting, and diarrhea, Negative for black/tarry stool. 12:15 All other systems are negative. Exam: 12:15 Constitutional: This is a well developed, well nourished patient who is awake, alert, jh7 and in no acute distress. Neck: Trachea midline, no thyromegaly or masses palpated, and no cervical lymphadenopathy. Supple, full range of motion without nuchal rigidity, or vertebral point tenderness. No Meningismus. Cardiovascular: Regular rate and rhythm with a normal S1 and S2. No gallops, murmurs, or rubs. Normal PMI, no JVD. No pulse deficits. Respiratory: Lungs have equal breath sounds bilaterally, clear to auscultation and percussion. No rales, rhonchi or wheezes noted. No increased work of breathing, no retractions or nasal flaring. Back: No spinal tenderness. No costovertebral tenderness. Full range of motion. Skin: Warm, dry with normal turgor. Normal color with no rashes, no lesions, and no evidence of cellulitis. MS/ Extremity: Pulses equal, no cyanosis. Neurovascular intact. Full, normal range of motion. Neuro: Awake and alert, GCS 15, oriented to person, place, time, and situation. Normal gait. 12:15 Abdomen/GI: Inspection: abdomen appears normal, Bowel sounds: normal, Palpation: soft, mild abdominal tenderness, in the suprapubic area, right lower quadrant and left lower quadrant. Vital Signs: 12:06 BP 116 / 80; Pulse 108; Resp 16; Temp 98.1(TE); Pulse Ox 97% on R/A; Weight 64.41 kg; hb Height 5 ft. 2 in. (157.48 cm); Pain 9/10; 12:06 Body Mass Index 25.97 (64.41 kg, 157.48 cm) hb MDM: 12:51 Patient medically screened. [facility] 16:50 Differential diagnosis: appendicitis, Ovarian cyst, pyelonephritis, UTI. Data reviewed: [facility] vital signs, nurses notes, lab test result(s), radiologic studies, CT scan. Data interpreted: Pulse oximetry: is 97 %. Interpretation: normal. Counseling: I had a detailed discussion with the patient and/or guardian regarding: the historical points, exam findings, and any diagnostic results supporting the discharge/admit diagnosis, to return to the emergency department if symptoms worsen or persist or if there are any questions or concerns that arise at home. ED course: Patient remained stable throughout the ER visit. She felt much better after pain medication administration.. 01/09 12:25 Order name: CBC with Diff; Complete Time: 14:[address] [facility] 01/09 12:25 Order name: CMP; Complete Time: 14:[address] [facility] 01/09 12:25 Order name: Lipase; Complete Time: 14:[address] [facility] 01/09 12:25 Order name: Urine Microscopic Only; Complete Time: 14:[address] [facility] 01/09 12:25 Order name: Flu; Complete Time: 14:[address] [facility] 01/09 12:25 Order name: SARS-COV-2 RT PCR (Document "Date of Onset" if Symptomatic); Complete Time: [facility] 15:24 01/09 12:29 Order name: Urine Dipstick-Ancillary; Complete Time: 13:48 [facility] 01/09 12:31 Order name: Urine --Ancillary (enter results); Complete Time: 13:48 01/09 14:30 Order name: Urine Culture [facility] 01/09 14:42 Order name: CT Abd/Pelvis - IV Contrast Only; Complete Time: 15:[address] [facility] 01/09 12:25 Order name: IV Saline Lock; Complete Time: 14:[address] [facility] 01/09 12:25 Order name: Labs collected and sent; Complete Time: 14:[address] [facility] 01/09 12:25 Order name: Urine Dipstick-Ancillary (obtain specimen); Complete Time: 14:[address] [facility] 01/09 12:25 Order name: Urine Test (obtain specimen); Complete Time: 14:[address] [facility] Administered Medications: 14:05 Drug: NS 0.9% 1000 ml Route: IV; Rate: 1 bolus; Site: right antecubital; hb 14:05 Drug: Pepcid (famotidine) 20 mg Route: IVP; Site: right antecubital; hb 14:06 Drug: Zofran (Ondansetron) 4 mg Route: IVP; Site: right antecubital; hb 16:40 Drug: Ketorolac 30 mg Route: IVP; Site: right antecubital; ss 17:40 Follow up: Response: No adverse reaction ss 16:46 Drug: Rocephin (cefTRIAXone) 1 grams Route: IV; Rate: 1 calculated rate; Site: right ss antecubital; 17:40 Follow up: IV Status: Completed infusion ss Disposition: 18:49 Co-signature as Attending Physician, Mary Kate Silva MD STAFF ATTESTATION STATEMENT I sd2 was immediately available on-site in the Emergency Department for consultation in the care of the patient. Mary Kate Silva MD. Disposition Summary: 01/09/22 15:53 Discharge Ordered Location: Home [facility] Problem: new [facility] Symptoms: have improved [facility] Condition: Stable [facility] Diagnosis - UTI/ Urinary tract infection, site not specified [facility] - Other ovarian cysts [facility] Followup: [facility] - With: Private Physician - When: 2 - 3 days - Reason: Recheck today's complaints Discharge Instructions: - Form - Return To Work hb - and Returning to Work hb - Discharge Summary Sheet [facility] - Ovarian Cyst [facility] - Urinary Tract Infection, Adult [facility] Forms: - Medication Reconciliation Form [facility] - Thank You Letter [facility] - Antibiotic Education [facility] - Work release form Prescriptions: - Pyridium 200 mg Oral Tablet - take 1 tablet by ORAL route every 8 hours for 3 days; 9 tablet; Refills: 0, jh7 Product Selection Permitted - Macrobid 100 mg Oral Capsule - take 1 capsule by ORAL route every 12 hours for 7 days; 14 capsule; Refills: 0, jh7 Product Selection Permitted Signatures: Dispatcher [employer] Maria Del Carmen Alonzo, AIDA RN Willow Hameed RN RN Lor Monroy, LEASING CONSULTANT LEASING CONSULTANT [facility] Mary Kate Silva MD MD sd2
--- NOTE | 2022-01-09 15:53 | ER ---
Nurse's Notes [facility] Name: Simi Hinkle Age: 26 yrs Sex: Female : 1995 Arrival Date: 01/09/2022 Time: 11:53 Bed 12 Private MD: Diagnosis: UTI/ Urinary tract infection, site not specified;Other ovarian cysts Presentation: 01/09 12:06 Chief complaint: Diffuse abdominal pain and N/V x 1 week, diarrhea x 3 days. Tolerating hb fluids but not food. Coronavirus screen: Client presents with at least one sign or symptom that may indicate coronavirus-19. Standard/surgical mask placed on the client. Provider contacted for isolation considerations. Ebola Screen: No symptoms or risks identified at this time. Initial Sepsis Screen: Does the patient meet any 2 criteria? No. Patient's initial sepsis screen is negative. Does the patient have a suspected source of infection? No. Patient's initial sepsis screen is negative. Risk Assessment: Do you want to hurt yourself or someone else? Patient reports no desire to harm self or others. Onset of symptoms was December 23, 2021. 12:06 Method Of Arrival: Ambulatory hb 12:06 Acuity: MELANIE 3 hb Historical: - Allergies: 12:08 Desitin; hb 12:08 PENICILLINS; hb - Home Meds: 12:08 Depakote (patient states she is out of medication) [Active]; hb - PMHx: 12:08 Biopolar; HYPOGLYCEMIA; Seizure; hb - PSHx: 12:08 Adenoid excision; Cholecystectomy; Tonsillectomy; hb - Immunization history:: Adult Immunizations up to date. - Social history:: Smoking status: Patient reports the use of cigarette tobacco products, smokes one-half pack cigarettes per day. Assessment: 17:41 Reassessment: Patient appears in no apparent distress at this time. Patient and/or ss family updated on plan of care and expected duration. Pain level reassessed. Patient is alert, oriented x 3, equal unlabored respirations, skin warm/dry/pink. Vital Signs: 12:06 BP 116 / 80; Pulse 108; Resp 16; Temp 98.1(TE); Pulse Ox 97% on R/A; Weight 64.41 kg; hb Height 5 ft. 2 in. (157.48 cm); Pain 9/10; 12:06 Body Mass Index 25.97 (64.41 kg, 157.48 cm) ED Course: 11:53 Patient arrived in ED. mr 11:55 [facility] 11:55 Mary Kate Silva MD is Attending Physician. [facility] 12:08 Triage completed. hb 12:08 Arm band placed on right wrist. hb 14:10 Inserted saline lock: 20 gauge in right antecubital area, using aseptic technique. Blood collected. 14:10 SARS-COV-2 RT PCR (Document "Date of Onset" if Symptomatic) Sent. zm 14:10 Flu Sent. zm 14:10 CBC with Diff Sent. zm 14:10 CMP Sent. zm 14:10 Lipase Sent. 15:06 CT Abd/Pelvis - IV Contrast Only In Process Unspecified. [facility] 16:35 Maria Del Carmen Mccormick, RN is Primary Nurse. ss 17:41 No provider procedures requiring assistance completed. Patient did not have IV access ss during this emergency room visit. Administered Medications: 14:05 Drug: NS 0.9% 1000 ml Route: IV; Rate: 1 bolus; Site: right antecubital; hb 14:05 Drug: Pepcid (famotidine) 20 mg Route: IVP; Site: right antecubital; hb 14:06 Drug: Zofran (Ondansetron) 4 mg Route: IVP; Site: right antecubital; hb 16:40 Drug: Ketorolac 30 mg Route: IVP; Site: right antecubital; ss 17:40 Follow up: Response: No adverse reaction 16:46 Drug: Rocephin (cefTRIAXone) 1 grams Route: IV; Rate: 1 calculated rate; Site: right ss antecubital; 17:40 Follow up: IV Status: Completed infusion Outcome: 15:53 Discharge ordered by . [facility] 17:41 Discharged to home ambulatory. ss 17:41 Condition: good 17:41 Discharge instructions given to patient, Instructed on discharge instructions, follow up and referral plans. medication usage, Demonstrated understanding of instructions, follow-up care, medications. 17:42 Patient left the ED. ss Signatures: Dispatcher [facility] BaljinderStephanie mr Maria Del Carmen Mccormick, AIDA RN Willow Hameed RN RN Nohemy Yen Jennifer, YARD FOREMAN YARD FOREMAN [email or web address]
[2022-01-09] MEDS ORDERED: CEFTRIAXONE 1000 MG/VIAL ONE (16:45)
[2022-01-09] MEDS ORDERED: KETOROLAC 30 MG/ML INJ ONE (16:45)
[2022-01-09] MEDS ORDERED: NA CHLORIDE 0.9% 100 ML ONE (16:45)
[2022-01-09 18:48] VITALS: BP 116/80; TEMP 98.1; O2SAT 97
== END 2022-01-09 17:42 | disposition home or self-care (01) ==
LOC: ER 11:52
DX: N39.0 Urinary tract infection, site not specified (principal); N83.299 Other ovarian cyst, unspecified side; F17.210 Nicotine dependence, cigarettes, uncomplicated; F31.9 Bipolar disorder, unspecified; Z88.0 Allergy status to penicillin; Z88.8 Allergy status to other drugs, medicaments and biological substances
CPT/HCPCS: 36415; 74177; 80053; 81003; 81015; 81025; 83690; 85025; 87086; 87088; 87804; 96365; 96375; 99284; J2405; J3490; J7030; Q9967; U0003